=== PATIENT | female | born 1995 ===

== ENCOUNTER 2021-12-26 13:16 | Outpatient (CLI) | payer OTHER | END 2021-12-26 15:00 | disposition home or self-care (01) | LOC: PRENATAL 13:16 | PROVIDERS: ATTEND Obstetrics & Gynecology Maternal & Fetal Medicine | DX: O35.0XX0 Maternal care for (suspected) central nervous system malformation in fetus, not applicable or unspecified (principal); O35.3XX0 Maternal care for (suspected) damage to fetus from viral disease in mother, not applicable or unspecified ==

== ENCOUNTER 2022-02-17 15:16 | Outpatient (CLI) | payer OTHER ==
[2022-04-01] MEDS ORDERED: PRENATAL + DHA1 EAC1 PO (10:20)
== END 2022-02-17 16:26 | disposition home or self-care (01) ==
LOC: PRENATAL 15:16
PROVIDERS: ATTEND Obstetrics & Gynecology Maternal & Fetal Medicine
DX: O26.849 Uterine size-date discrepancy, unspecified trimester (principal); O35.0XX0 Maternal care for (suspected) central nervous system malformation in fetus, not applicable or unspecified; O36.8199 Decreased fetal movements, unspecified trimester, other fetus; Z3A.33 33 weeks gestation of pregnancy